=== PATIENT | female | born 1970 | race Caucasian/White ===

== ENCOUNTER → 2019-05-17 09:24 | Outpatient (CLI) | payer OTHER, SELFPAY ==
--- NOTE | ~2019-05-17 | US_ITS ---
EXAMINATION: US transvaginal DATE: 05/17/2019 10:23 INDICATION: Right lower quadrant pain Comparison:No prior studies for comparison. TECHNIQUE: Multiple endovaginal sonographic images of the pelvis performed. FINDINGS: The uterus measures 10 x 5 x 5.6 cm. The endometrial complex measures 1.6 cm. The right ovary measures 2.1 x 1.7 x 1.5 cm and the left ovary measures 2 x 1.8 x 1.3 cm. There are small follicles in each ovary. There is no free fluid in the pelvis. There are no abnormal masses seen on either side. IMPRESSION: 1. Endometrial thickening measuring 1.6 cm. Reviewed, dictated and finalized at location A.
--- NOTE | ~2019-05-17 | US_ITS ---
US abdomen complete DATE: 05/17/2019 10:23 INDICATION: Abdominal pain, right upper quadrant. The urinary colic. TECHNIQUE: Real-time imaging of the complete abdomen. Doppler analysis. COMPARISON: None FINDINGS: No hepatic or pancreatic space-occupying mass lesion is evident. Normal hepatic portal veno us flow direction. No evidence of gallstones, gallbladder wall thickening or pericholecystic fluid co llection. Negative sonographic Piña's sign. The common bile duct measures 4.5 mm, within normal ran ge. Both kidneys measure a little over 10 cm length. No renal mass lesion or hydronephrosis is evident. N ormal splenic size. Normal caliber of the abdominal aorta. Inferior vena cava is not well demonstrated. IMPRESSION: No significant abnormality Reviewed, dictated and finalized at Location [facility]. Reviewed, dictated and finalized at location B. IMPRESSION: No significant abnormality
== END ==
PROVIDERS: PCP Internal Medicine; Visit Provider Internal Medicine
DX: K80.50 Calculus of bile duct without cholangitis or cholecystitis without obstruction (principal); R10.2 Pelvic and perineal pain
CPT/HCPCS: 76700; 76830

== ENCOUNTER → 2021-12-17 13:37 | Outpatient (CLI) | payer OTHER, SELFPAY ==
--- NOTE | ~2021-12-17 | US_ITS ---
US renal BI 12/17/2021 14:16 Procedure: Realtime transabdominal ultrasound of the kidneys and bladder. Indication: Right flank pain Comparison: Ultrasound dated 05/17/2019 Findings: Renal echotexture is normal bilaterally without hydronephrosis, contour deforming mass or r enal calculus. The right kidney measures 10.5 cm and left kidney measures 9.1 cm. Bladder within nor mal limits. Impression: 1: Unremarkable renal ultrasound. No stones, masses or hydronephrosis. Reviewed, dictated and finalized at location A. Impression: 1: Unremarkable renal ultrasound. No stones, masses or hydronephrosis.
--- NOTE | ~2021-12-17 | US_ITS ---
EXAMINATION: US transvaginal DATE: 12/17/2021 14:16 INDICATION: Menorrhagia. TECHNIQUE: Multiple transvaginal sonographic images of the pelvis were obtained. COMPARISON: None. FINDINGS: The uterus measures 9.2 x 5.5 x 5.0 cm. There is no free fluid in the pelvis. The endometrial complex measures 6 mm in thickness. The ovaries are not visualized. IMPRESSION: 1. Normal uterus. Reviewed, dictated and finalized at location A. IMPRESSION: 1. Normal uterus.
== END ==
PROVIDERS: PCP Internal Medicine; Visit Provider Internal Medicine
DX: R10.9 Unspecified abdominal pain (principal); R93.89 Abnormal findings on diagnostic imaging of other specified body structures; N93.9 Abnormal uterine and vaginal bleeding, unspecified
CPT/HCPCS: 76775; 76830